=== PATIENT | male | born 1985 | race Caucasian/White ===

== ENCOUNTER 2025-04-24 17:31 | Emergency (ER) | payer BC, SELFPAY ==
[2025-04-24 17:37] VITALS: BP 136/97; PULSE 74; RESP 16; TEMP 36.2; O2SAT 98
--- NOTE | 2025-04-24 18:01 | ED.SKABFB ---
HPI - Skin/Abscess/Foreign Bdy General Chief complaint: Skin/Abscess/Foreign Body Stated complaint: Rash Time Seen by Provider: 04/24/25 18:02 Source: patient, RN notes reviewed and old records reviewed Mode of arrival: ambulatory Limitations: no limitations History of Present Illness HPI narrative: 39-year-old male presents to the [facility] with sores to the back of his head for the last 3-4 weeks, over the last couple of days has gotten worse, noticing drainage to his pillow case. Has a history of folliculitis. Related Data Home Medications ?Medication ?Instructions ?Recorded ?Confirmed ?Last Taken ?Type apixaban 5 mg tablet (Eliquis) 5 mg PO DAILY 04/24/25 04/24/25 Unknown History lorazepam 0.5 mg tablet 0.5 mg PO DAILY PRN anxiety 04/24/25 04/24/25 Unknown History Allergies Allergy/AdvReac Type Severity Reaction Status Date / Time No Known Allergies Allergy Verified 04/24/25 17:44 Review of Systems Review of Systems: All systems reviewed & are unremarkable except as noted in HPI and below Constitutional: Constitutional: Reports no additional constitutional complaints ENT: Reports system reviewed and no additional complaints, except as documented Cardiovascular: Cardiovascular: Reports no additional cardiovascular complaints, Denies chest pain and Denies dyspnea Respiratory: Respiratory: Reports no additional respiratory complaints, Denies chest congestion, Denies cough and Denies dyspnea Musculoskeletal: Musculoskeletal: Reports no additional musculoskeletal complaints Integumentary/Breasts: Skin/Breast: Reports as per HPI PMFSH Comments At the time of my signature, I reviewed and agree with the nursing past medical, surgical, social, and family history. There is no relevant family history pertinent to the patient complaint. Exam Const: General: cooperative, healthy appearing, comfortable, no acute distress, well developed, alert and well nourished Nutritional Appearance: well nourished and obese Orientation/consciousness: patient oriented x3 Limitations: no limitations HENMT: Head: normal to inspection Eyes: General: appearance normal, both eyes and all related structures Alignment and Position: alignment normal Neck: Neck: normal visual inspection, full ROM, no lymphadenopathy and no meningeal signs Chest: Chest palpation & inspection: normal inspection of the chest Resp: Effort & Inspection: normal respiratory effort and able to speak in complete sentences Cardio: Rate: regular rate Skin: General skin exam: normal color and no rashes or lesions noted Other: Multiple scabbed lesions to the posterior and side of scalp. Most likely folliculitis. No drainage, no fluctuant areas. Neuro: General: patient oriented x3, gait normal, moves all extremities and no meningeal signs Cognition (Neuro): normal cognition Speech: normal speech Gait exam (Neuro): Normal gait present Extrem: General: normal to inspection, full ROM, capillary refill normal and normal gait Psych: Appearance: grossly normal and well kempt Mental Status: mental status grossly normal Speech and movement: Normal speech and movement present and Clear speech present Affect: normal affect Attitude: cooperative Course Course Level of Care: Express Care Visit Vital Signs Vital signs: Vital Signs Temperature 97.1 F L 04/24/25 17:37 Pulse Rate 74 04/24/25 17:37 Respiratory Rate 16 04/24/25 17:37 Blood Pressure 136/97 H 04/24/25 17:37 Pulse Oximetry 98 04/24/25 17:37 Oxygen Delivery Room Air 04/24/25 17:37 Temperature 97.1 F L 04/24/25 17:37 Pulse Rate 74 04/24/25 17:37 Respiratory Rate 16 04/24/25 17:37 Blood Pressure 136/97 H 04/24/25 17:37 Pulse Oximetry 98 04/24/25 17:37 Oxygen Delivery Room Air 04/24/25 17:37 Reviewed MDM - Skin/Abscess/Foreign Bdy MDM Narrative Medical decision making narrative: Patient sitting in exam room. Patient is nontoxic, vitals stable. Present presents with folliculitis, will treat with both oral antibiotics topical antibiotics encourage patient to follow-up with primary care provider Discharge instructions reviewed with patient, as well as provided in writing per nursing staff. The instructions also include specific and strict return/GO TO THE ER as well as f/u information. All questions have been answered, and the patient deny any further questions with discharge and discharge plan. Some parts of this dictation were generated by voice recognition software and may contain typographical and/or grammatical inaccuracies. Differential Diagnosis Differential diagnosis: Likely abscess of skin or subcutaneous tissue, viral exanthem, urticaria, herpes zoster, allergic reaction to drug, cellulitis, eczema, insect bites, impetigo and contact dermatitis Critical Care Time Critical Care Time Critical Care Time: No Discharge Plan Discharge Clinical Impression: Folliculitis Patient Disposition: Home Condition: Stable Instructions: Antibiotic Form, Folliculitis (ED) Additional Instructions: Take oral antibiotic as prescribed. Use topical antibiotic Try using Nizoral shampoo Follow-up with primary care provider Follow-up with a skilled labor Patient Language: [place]ian Prescriptions: New sulfamethoxazole-trimethoprim [Bactrim DS] 800-160 mg tablet 1 tablet PO Q12H Qty: 14 0RF clindamycin phosphate 1 % solution 1 applic topical HS Qty: 30 0RF No Action Eliquis 5 mg tablet 5 mg PO DAILY lorazepam 0.5 mg tablet 0.5 mg PO DAILY PRN (Reason: anxiety) Follow-up/Referrals: PHYSICIAN,HOME HEALTH ADMINISTRATOR [Primary Care Provider, Internal Medicine] Stand Alone Forms: Work/School Release IP Time of Disposition: 18:12
== END 2025-04-24 18:18 | disposition home or self-care (01) ==
PROVIDERS: Emergency Provider Nurse Practitioner
DX: L73.9 Follicular disorder, unspecified (principal); Z86.718 Personal history of other venous thrombosis and embolism; Z79.01 Long term (current) use of anticoagulants
CPT/HCPCS: 99203; G0463